=== PATIENT | male | born 1960 | race Caucasian/White ===

== ENCOUNTER 2019-11-28 13:00 | Emergency (ER) | payer OTHER ==
[2019-11-28 13:07] VITALS: TEMP 98.2; BMI 27.3
[2019-11-28 13:33] LABS: BASO % 1.8 % (0-2.0); EOS % 0.4 % (0-4.5); HEMATOCRIT 45.5 % (35.4-49); HEMOGLOBIN 15.1 GM/dl (11.7-16.9); LYMPH % 26.7 % (8-40); MCH 30.6 pg (25.7-33.7); MCHC 33.2 g/dl (32.0-35.9); MEAN CELL VOLUME 92.3 fl (80-96); MEAN PLT VOLUME 9.4 fl (7.5-11.1); MONO % 8.8 % (3.8-10.2); NEUT % 62.3 % (42.8-82.8); PLATELET COUNT 221 K/MM3 (134-434); RBC 4.93 M/mm3 (4.00-5.60); RDW 12.6 % (11.9-15.9); WHITE BLOOD COUNT 6.5 K/mm3 (4.0-10.8)
[2019-11-28 13:46] LABS: INR 1.23 (0.82-1.09); PROTHROMBIN TIME (PATIENT) 13.7 SEC (10.2-13.0)
--- NOTE | 2019-11-28 13:51 | PDOC ---
History of Present Illness - General Chief Complaint: Weakness Stated Complaint: CHEST PRESSURE, WEAKNESS Time Seen by Provider: 11/28/19 13:07 History Source: Patient, Spouse ( present at bedside) Exam Limitations: No Limitations - History of Present Illness Initial Comments: HPI: 59 y/o male presenting to [facility] complaining of two to three weeks of worsening fatigue, migratory back pain, two to three days of intermittent substernal chest discomfort, occasional SOB while walking, loose stool (nonbloody), and bilateral neck tightness. Became concerned when the fatigue was worse this morning and he developed left arm and leg numbness. Denies difficulty moving any of his extremities, facial asymmetry, difficulty speaking, or syncope. Pt has a h/o paroxysmal a-fib. 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 Denies episodes of palpitations, facial flushing, fever, difficulty swallowing, or difficulty breathing. At time of interview, the pt reports the numbness had almost completely resolved. Unable to tell if the numbness in his left arm was present because the IV is there. 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 Pt has an appointment already scheduled with his PCP, rosalina Briggs at 17:00. Social Hx: EtOH: Denies Tobacco: Denies Street drugs: Denies Past History - Medical History Allergies/Adverse Reactions: Allergies Allergy/AdvReac Type Severity Reaction Status Date / Time No Known Drug Allergies Allergy Unknown Verified 11/28/19 13:01 Home Medications: Ambulatory Orders Multivitamin [Daily Vitamin Formula] 1 each PO DAILY tablet 03/29/16 Cholecalciferol (Vitamin D3) [Vitamin D3] 1,000 unit PO DAILY 11/28/19 Ibuprofen [Advil -] 400 mg PO ONCE 11/28/19 Anemia: No Asthma: No Cancer: No Cardiac Disorders: Yes (09/2015 has had 2 episodes of a-fib r/t severe nausea & vomitting) CVA: No COPD: No CHF: No Dementia: No Diabetes: No GI Disorders: Yes (spastic colon, fatty liver) Disorders: No HTN: No Hypercholesterolemia: No Liver Disease: No Seizures: No Thyroid Disease: No - Surgical History Cholecystectomy: Yes - Psycho-Social/Smoking History Smoking History: Never smoked Have you smoked in the past 12 months: No Information on smoking cessation initiated: No - Substance Abuse Hx (Audit-C & DAST Scrn) How often the patient has a drink containing alcohol: Never Score: In Men: 4 or > Positive; In Women: 3 or > Positive: 0 Screen Result (Pos requires Nsg. Audit-10AR): Negative In the last yr the pt used illegal drug/Rx for NonMed reason: No Score: Yes response is considered Positive: 0 Screen Result (Positive result requires Nsg. DAST-10): Negative Review of Systems - Review of Systems Able to Perform ROS?: Yes Comments:: 10 point review of systems completed. All systems negative except as noted above. *Physical Exam - Vital Signs Last Vital Signs Temp Pulse Resp BP Pulse Ox 98.2 F 82 18 120/83 99 11/28/19 13:00 11/28/19 13:00 11/28/19 13:00 11/28/19 13:11/28/19 13:00 - Physical Exam Vital signs and nursing notes reviewed. Constitutional- Well-developed, well-nourished adult male in no acute distress or obvious discomfort. Found semi-fowlers on hospital bed. Answered all questions appropriately and completely. Pt observed self ambulating unassisted into the department without obvious difficulty. Head- Normocephalic. No obvious external signs of trauma. Eyes- Pupils 4mm and PERRL. EOMI. Sclerae white. Conjunctiva moist and not injected. Ears- Hearing grossly intact. External auditory canals and tympanic membranes pearly redmond. Nose- No nasal discharge. Throat- Oral cavity and pharynx normal. No inflammation, swelling, exudate, or lesions. Teeth and gingiva in good general condition. Uvula midline. Neck- Supple, trachea is midline. No thyromegaly. No midline spinal tenderness. Cardiovascular / Chest- Regular rate and regular rhythm. No murmur, rubs, clicks, or gallops. Peripheral pulses- radial pulses full. No pretibial edema. Respiratory- Breathing unlabored. Speaking in multi-word responses without pausing. Equal chest rise and fall. Clear to auscultation bilaterally. No strid or, no wheezing, no rhonchi. Gastrointestinal- abdomen is soft, non-tender, non-distended. No pulsatile masses. No overlying skin lesions or obvious signs of trauma. Neuro- Alert and oriented x4. Moving all four extremities spontaneously. No facial asymmetry. No slurred speech. No focal deficits. No upper or lower extremity drift. Cranial nerves intact. Sensation to all four extremities intac t. Proximal and distal strength 5/5. Crossbar Switch Adjuster strength 5/5 - equal and symmetric. Plantar flexion and dorsiflexion 5/5. No nuchal rigidity. Intact rapid alternating movements and heel to adams. Skin- Warm, dry, and intact. No bruising, rashes, or other lesions. Back- No midline or paraspinal tenderness or bony deformities to thoracic and lumbar spine. No overlying skin changes. - No R or L CVA tenderness. Psych- Affect- appropriate. Mood- normal. Speech was non-labored, non- pressured. ED Treatment Course - LABORATORY CBC & Chemistry Diagram: 11/28/19 13:15 11/28/19 13:15 - ADDITIONAL ORDERS Additional order review: 11/28/19 13:15 RBC 4.93 MCV 92.3 MCHC 33.2 RDW 12.6 MPV 9.4 Neutrophils % 62.3 Lymphocytes % 26.7 D Monocytes % 8.8 Eosinophils % 0.4 Basophils % 1.8 - RADIOLOGY Radiology Studies Ordered: Category Date Time Status CHEST PA & LAT [RAD] Stat Radiology 11/28/19 13:07 Taken Medical Decision Making - Medical Decision Making NIH Stroke Scale/Score (NIHSS) RESULT SUMMARY: 0 points NIH Stroke Scale INPUTS: 1A: Level of consciousness > 0 = Alert; keenly responsive 1B: Ask month and age > 0 = Both questions right 1C: 'Blink eyes' & 'squeeze hands' > 0 = Performs both tasks 2: Horizontal extraocular movements > 0 = Normal 3: Visual lipscomb > 0 = No visual loss 4: Facial palsy > 0 = Normal symmetry 5A: Left arm motor drift > 0 = No drift for 10 seconds 5B: Right arm motor drift > 0 = No drift for 10 seconds 6A: Left leg motor drift > 0 = No drift for 5 seconds 6B: Right leg motor drift > 0 = No drift for 5 seconds 7: Limb Ataxia > 0 = No ataxia 8: Sensation > 0 = Normal; no sensory loss 9: Language/aphasia > 0 = Normal; no aphasia 10: Dysarthria > 0 = Normal 11: Extinction/inattention > 0 = No abnormality 59 y/o male presenting with several weeks of progressive symptoms with back pain, chest pain, and numbness in left arm and left leg. Afebrile. Vitals unremarkable for hypotension or tachycardia. Physical exam as described above. Low suspicion for CVA vs TIA even with a-fib risk factor. Symptoms described as waxing and waning. Will obtain HCT. Low suspicion for ACS vs paroxysmal a-fib vs PNA vs MSK pain. EKG unremarkable for ischemic changes. No significant events observed on continues telemetry monitoring. CXR and HCT unremarkable for acute pathology. Labs reviewed. No significant electrolyte derangement. Troponin not elevated. No indication for delta troponin as symptoms began >3 hrs before arrival. 28 Nov 2019 15:35 PM Pt reassessed. Reports numbness now at the tip of the second digit in his left hand. Continues to deny motor weakness. Denies worsening chest pain or SOB. Discussed possibility of TIA even with unremarkable HCT. Offered admission for further observation, but pt declined. Stated he would like to follow up with his PCP, Dr. Iverson, this evening at the previously scheduled 17:00 apt. was present for conversation and also expressed agreem ent with plan. Unclear etiology of symptoms. Perhaps related to poor sleep hygiene. Case discussed with ED Attending Dr. Murrieta. Ethan Malone M.D., PGY3 Emergency Medicine Residency Discharge - Discharge Information Problems reviewed: Yes Clinical Impression/Diagnosis: Numbness of left hand, Numbness in left leg Chest pain Qualifiers: Chest pain type: unspecified Qualified Code(s): R07.9 - Chest pain, unspecified Back pain Qualifiers: Back pain location: thoracic back pain Chronicity: unspecified Back pain laterality: bilateral Qualified Code(s): M54.6 - Pain in thoracic spine Condition: Good Disposition: HOME - Admission No - Follow up/Referral Referrals: Dash Iverson MD [Primary Care Provider] - Moy Mcguire MD [Staff Physician] - - Patient Discharge Instructions Patient Printed Discharge Instructions: DI for Numbness/tingling Additional Instructions: You were seen today for numbness in your left arm and leg, chest discomfort, back pain, neck pain, and fatigue. Your head CT, chest xray, and blood tests did not show any life threatening cause for your symptoms. You were offered admission for further evaluation, but declined. Please follow up with Dr. Zayra romano at your 5pm appointment. All of today's results are included in this packet. Take it with you to the appointment so your doctor can review them. You can also follow up with a neurologist. I have entered a referral for you to see Dr. Mcguire. You will need to call to make an appointment. The number is included in this packet. A copy of todays results are attached to this packet. Take it to the appointment so your doctor can review them. Go to the nearest emergency department if your condition worsens or you feel like you need additional emergency evaluation. Watch for worsening numbness, weakness, or slurred speech as these may be signs of a more serious illness. Print Language: IVORIAN - Post Discharge Activity Work/Back to School Note: Back to Work
[2019-11-28 13:52] LABS: ALBUMIN 4.2 g/dl (3.4-5.0); BILIRUBIN,TOTAL 0.6 mg/dl (0.2-1); CALCIUM 8.9 mg/dl (8.5-10); CREATININE 1.1 mg/dl (0.55-1.3); MAGNESIUM 2.1 mg/dL (1.8-2.4); TOT PROT 6.8 g/dl (6.4-8.2)
--- NOTE | 2019-11-28 14:43 | PDOC ---
Attending Attestation - Resident Resident Name: Ethan - ED Attending Attestation I have performed the following: I have examined & evaluated the patient, The case was reviewed & discussed with the resident, I agree w/resident's findings & plan, Exceptions are as noted - HPI HPI: 11/28/19 14:38 59 yo M h/o pAfib not on any medications p/w fatigue x2-3 weeks, back pain and intermittent non-radiating chest pain. Patient not sure if chest pain is exertional and states sometimes it occurs at rest. Unable to identify any modifying factors. Also reports he had a brief episode today of tingling in his L upper and lower extremities withotu any weakness that resolved on its own. Currently denies any numbness, weakness or tingling. States he has f/u with his PMD later today. - Physicial Exam PE: 11/28/19 14:42 General: well appearing HEENT: NCAT Chest: CTAB, good air entry CVS: + s1 s2, RRR Extremities: warm and well perfused, FROM Neuro: Aox3, speech fluent, face symmetric, gait steady, sensation intact to light touch, strength preserved, no focal deficits - Medical Decision Making 11/28/19 14:43 59 yo M with multiple medical complaints, unremarkable physical exam, doubt TIA and patient's watch monitors his HR and rhythm without any evidence of afib and was isolatd subjective report of tingling without true numbness or any motor weakness. Possible anemia vs. electrolyte abnormality vs. unlikely ACS as chest pain is atypical and EKG without ischemic changes vs. sleep apnea vs. 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 The [place] of the Department of Health and Human Services has declared, pursuant to the Public Health Service Act 319F-3 (42 U.S.C. 247d-6d), that a covered persons activities related to medical countermeasures against COVID-19 will be immune from liability under Federal and State law. 11/28/19 15:47 Labs and imaging reviewed. Discussed admission for possible TIA vs. discharge with close outpatient follow up. R/B/A discussed with patient who stated he would prefer to follow up as an outpatient and has an appt with his PMD later today. Will d/c with mikey. Patient to f/u with his PMD today. Discharge - Discharge Information Problems reviewed: Yes Clinical Impression/Diagnosis: Numbness of left hand, Numbness in left leg Chest pain Qualifiers: Chest pain type: unspecified Qualified Code(s): R07.9 - Chest pain, unspecified Back pain Qualifiers: Back pain location: thoracic back pain Chronicity: unspecified Back pain laterality: bilateral Qualified Code(s): M54.6 - Pain in thoracic spine Condition: Good Disposition: HOME - Follow up/Referral Referrals: Moy Mcguire MD [Staff Physician] - Dash Iverson MD [Primary Care Provider] - - Patient Discharge Instructions Patient Printed Discharge Instructions: DI for Numbness/tingling Additional Instructions: You were seen today for numbness in your left arm and leg, chest discomfort, back pain, neck pain, and fatigue. Your head CT, chest xray, and blood tests did not show any life threatening cause for your symptoms. You were offered admission for further evaluation, but declined. Please follow up with Dr. Zayra romano at your 5pm appointment. All of today's results are included in this packet. Take it with you to the appointment so your doctor can review them. You can also follow up with a neurologist. I have entered a referral for you to see Dr. Mcguire. You will need to call to make an appointment. The number is included in this packet. A copy of todays results are attached to this packet. Take it to the appointment so your doctor can review them. Go to the nearest emergency department if your condition worsens or you feel like you need additional emergency evaluation. Watch for worsening numbness, weakness, or slurred speech as these may be signs of a more serious illness. Print Language: SINHALA - Post Discharge Activity Work/Back to School Note: Back to Work
[2019-11-28 15:55] VITALS: BP 127/75; PULSE 69
--- NOTE | 2019-11-30 19:00 | EKG ---
Test Reason : Blood Pressure : / mmHG Vent. Rate : 070 BPM Atrial Rate : 070 BPM P-R Int : 158 ms QRS Dur : 090 ms QT Int : 386 ms P-R-T Axes : 051 034 017 degrees QTc Int : 416 ms NORMAL SINUS RHYTHM NORMAL ECG NO PREVIOUS ECGS AVAILABLE Confirmed by MD PRAVIN, ROBERT ([id number]) on 11/30/2019 7:00:09 PM Referred By: MD DAVILA Confirmed By:ROBERT COSTELLO MD
== END 2019-11-28 15:55 | disposition home or self-care (01) ==
LOC: FER 13:00
DX: R20.2 Paresthesia of skin (principal); R07.9 Chest pain, unspecified
CPT/HCPCS: 36415; 70450-TC; 71046-TC-FY; 80053; 82550; 83735; 84484; 85025; 85610; 93005; 99285-25

== ENCOUNTER 2020-03-07 19:41 | Emergency (ER) | payer OTHER | END 2020-03-07 19:59 | disposition home or self-care (01) | LOC: JVIRT 19:41 | DX: Z03.818 Encounter for observation for suspected exposure to other biological agents ruled out (principal) | CPT/HCPCS: C9803; Q3014-GT; U0003 ==

== ENCOUNTER 2020-07-19 15:47 | Emergency (ER) | payer OTHER ==
[2020-07-19 15:59] VITALS: TEMP 99.2; BMI 28.5
[2020-07-19] MEDS ORDERED: ACETAMINOPHEN 325 MG TABLET (FP) PO ONE (16:29)
[2020-07-19] MEDS ORDERED: ACETAMINOPHEN 325 MG TABLET (FP) ONE (16:49)
[2020-07-19] MEDS ORDERED: LIDOCAINE VISCOUS 2% ORAL/TOP 20 ML UNIT-DOSE CUP MM ONE (17:01)
[2020-07-19] MEDS ORDERED: MAG HYDROX/AL HYDROX/SIMETH 30 ML UNIT-DOSE CUP PO ONE (17:01)
[2020-07-19] MEDS ORDERED: FAMOTIDINE 20 MG/50 ML IVPB 20 MG/50 ML MG IVPB ONE (17:01)
[2020-07-19 17:07] LABS: HEMATOCRIT 42.1 % (35.4-49); HEMOGLOBIN 13.6 GM/dl (11.7-16.9); MCH 29.3 pg (25.7-33.7); MCHC 32.4 g/dl (32.0-35.9); MEAN CELL VOLUME 90.6 fl (80-96); MEAN PLT VOLUME 9.3 fl (7.5-11.1); PLATELET COUNT 198 K/MM3 (134-434); RBC 4.65 M/mm3 (4.00-5.60); RDW 12.3 % (11.9-15.9); WHITE BLOOD COUNT 6.4 K/mm3 (4.0-10.8)
[2020-07-19] MEDS ORDERED: FAMOTIDINE 20 MG TABLET ONE (17:11)
[2020-07-19] MEDS ORDERED: LIDOCAINE VISCOUS 2% ORAL/TOP 20 ML UNIT-DOSE CUP ONE (17:11)
[2020-07-19] MEDS ORDERED: MAG HYDROX/AL HYDROX/SIMETH 30 ML UNIT-DOSE CUP ONE (17:11)
[2020-07-19 17:25] LABS: ALBUMIN 3.9 g/dl (3.4-5.0); ALK PHOS 70 U/L (45-117); ANION GAP 9 MMOL/L (8-16); BILIRUBIN,TOTAL 0.4 mg/dl (0.2-1); CHLORIDE 104 mmol/L (98-107); CO2 25 mmol/L (21-32); CREATININE 1.4 mg/dl (0.55-1.3); GLUCOSE,RANDOM 106 mg/dl (74-106); MAGNESIUM 2.1 mg/dL (1.8-2.4); POTASSIUM 4.2 mmol/L (3.5-5.1); SGOT/AST 16 U/L (15-37); SGPT/ALT 22 U/L (13-61); SODIUM 138 mmol/L (136-145); TOT PROT 6.3 g/dl (6.4-8.2)
[2020-07-19 18:36] LABS: PLATELET ESTIMATE ADEQUATE
[2020-07-19 21:17] VITALS: BP 123/78; PULSE 84
== END 2020-07-19 21:24 | disposition home or self-care (01) ==
LOC: FER 15:47
DX: R07.9 Chest pain, unspecified (principal); K21.9 Gastro-esophageal reflux disease without esophagitis
CPT/HCPCS: 36415; 71046-TC-FY; 80053; 83735; 84484; 85025; 93005; 99285-25

== ENCOUNTER 2022-07-21 22:32 | Observation (INO) | payer OTHER ==
[2022-07-21] MEDS ORDERED: SODIUM CHLORIDE 1,000 ML IV ONE (23:13)
[2022-07-21] MEDS ORDERED: ONDANSETRON 4 MG/2 ML VIAL IVPB ONE (23:13)
[2022-07-21 23:28] LABS: ALBUMIN 4.2 g/dl (3.4-5.0); CREATININE 1.3 mg/dl (0.55-1.3); TOT PROT 6.6 g/dl (6.4-8.2)
[2022-07-22 00:12] LABS: HEMATOCRIT 43.3 % (35.4-49); HEMOGLOBIN 14.6 GM/dL (11.7-16.9); MCH 30.6 pg (25.7-33.7); MCHC 33.7 g/dl (32.0-35.9); MEAN CELL VOLUME 90.8 fl (80-96); MEAN PLT VOLUME 9.6 fl (7.5-11.1); PLATELET COUNT 197 10^3/uL (134-434); RBC 4.77 M/mm3 (4.00-5.60); RDW 13.8 % (11.9-15.9); WHITE BLOOD COUNT 10.2 K/mm3 (4.0-10.0)
[2022-07-22] MEDS ORDERED: ENOXAPARIN NA (PORCINE) 80 MG/0.8 ML DISP.SYRIN SQ ONE (01:17)
[2022-07-22] MEDS ORDERED: ENOXAPARIN NA (PORCINE) 100 MG/1 ML DISP.SYRIN SQ ONE (01:21)
[2022-07-22] MEDS ORDERED: POTASSIUM CHLORIDE TABS 20 MEQ TABLET.ER (FP) PO ONE ×2 (02:02→02:15)
[2022-07-22] MEDS ORDERED: DIGOXIN 0.5 MG/2 ML AMPUL ONE (02:03)
[2022-07-22] MEDS ORDERED: DIGOXIN 0.5 MG/2 ML AMPUL IVPUSH ONE (02:15)
[2022-07-22 02:42] VITALS: BMI 26.1
[2022-07-22 08:27] VITALS: BP 103/65; PULSE 70; RESP 16; TEMP 97.4
[2022-07-22 08:34] LABS: CALCIUM 8.7 mg/dl (8.5-10); CREATININE 1.1 mg/dl (0.55-1.3); MAGNESIUM 2.1 mg/dL (1.8-2.4)
[2022-07-22 10:47] LABS: HEMATOCRIT 40.6 % (35.4-49); HEMOGLOBIN 13.6 GM/dL (11.7-16.9); MCH 30.6 pg (25.7-33.7); MCHC 33.4 g/dl (32.0-35.9); MEAN CELL VOLUME 91.4 fl (80-96); MEAN PLT VOLUME 9.3 fl (7.5-11.1); PLATELET COUNT 187 10^3/uL (134-434); RBC 4.44 M/mm3 (4.00-5.60); RDW 13.8 % (11.9-15.9); WHITE BLOOD COUNT 7.4 K/mm3 (4.0-10.0)
[2022-07-22 11:34] LABS: PHOSPHOROUS 3.9 mg/dl (2.5-4.9)
== END 2022-07-22 09:45 | disposition home or self-care (01) ==
LOC: FER 22:32 → MERGE 07-22 01:05 → FM/S 07-22 01:05 → OBSVTOIN 07-22 01:05 → INTOOBSV 07-22 01:05 → UNDOADMOB 07-22 01:51 → INTOOBSV 07-22 01:51 → FM/S 07-22 01:51 → UNDODISIN 07-22 09:45
PROVIDERS: ADMIT Internal Medicine; ATTEND Internal Medicine
PROC: 3E033GC Introduction of Other Therapeutic Substance into Peripheral Vein, Percutaneous Approach (ICD-10-PCS; principal; 2022-07-22)
PROC: 3E023GC Introduction of Other Therapeutic Substance into Muscle, Percutaneous Approach (ICD-10-PCS; 2022-07-22)
PROC: 3E0337Z Introduction of Electrolytic and Water Balance Substance into Peripheral Vein, Percutaneous Approach (ICD-10-PCS; 2022-07-22)
DX: I48.0 Paroxysmal atrial fibrillation (principal)
CPT/HCPCS: 0241U-QW; 36415; 71045-TC-FY; 80048; 80053; 82550; 83735; 84100; 84439; 84443; 84484; 85027; 93005; 99285-25; G0378